=== PATIENT | male | born 1935 | race Caucasian/White ===

== ENCOUNTER 2019-09-09 13:09 | Emergency (ER) | payer OTHER ==
[~2019-09-09] VITALS: Ht 175.3 cm; Wt 63.5 kg
--- NOTE | 2019-09-09 13:18 | NUR ---
"[facility] TO ER; [facility] WHERE HE HAD A MECHANICAL TRIP & FALL; FELL FACE DOWN; C/O LEFT FACIAL WOUND AND NOSE BLEED;DENIES KO" pt [id number], -sob, nad noted, pt on monitor, vss, pending md mims
[2019-09-09 13:48] LABS: BASOPHILS # (AUTO) 0.1 /CMM (0.0-0.2); BASOPHILS % (AUTO) 2.5 % (0.0-2.0); EOSINOPHILS % (AUTO) 0.2 % (0.0-6.0); HEMATOCRIT 28 % (39-51); HEMOGLOBIN 7.5 g/dL (13.5-17.5); LYMPHOCYTES # (AUTO) 3.8 /CMM (0.8-4.8); MEAN CORPUSCULAR HGB CONC 27 g/dl (31.0-36.0); MEAN CORPUSCULAR VOLUME 67 fL (80-96); MONOCYTES % (AUTO) 0.5 % (2.0-12.0); NEUTROPHILS # (AUTO) 1.9 /CMM (1.8-8.9); NEUTROPHILS % (AUTO) 31.8 % (43.0-81.0); RED BLOOD CELL COUNT(AUTO) 4.18 MIL/uL (4.5-6.0); WHITE BLOOD COUNT (AUTO) 5.8 K/uL (4.3-11.0)
[2019-09-09 13:49] LABS: CALCIUM, SERUM 8.1 mg/dL (8.5-10.1); CREATININE 0.8 mg/dL (0.6-1.3); POTASSIUM 4.1 mmol/L (3.5-5.1)
[2019-09-09 13:56] LABS: ALBUMIN 3.8 g/dL (3.4-5.0); BILIRUBIN,DIRECT 0.4 mg/dL (0.0-0.2); BILIRUBIN,TOTAL 1.8 mg/dL (0.2-1.0); TOTAL PROTEIN, SERUM 6.3 g/dL (6.4-8.2)
[2019-09-09] MEDS ORDERED: PHENYLEPHRINE 0.5% NASAL SPRAY 15 ML BOTTLE NS ONE ×2 (14:10→14:30)
[2019-09-09] MEDS ORDERED: ATEN50TA PO ×2 (14:19)
[2019-09-09] MEDS ORDERED: FINA5TAB3 PO (14:19)
[2019-09-09] MEDS ORDERED: TAMS-12 PO (14:20)
[2019-09-09] MEDS ORDERED: ONDANSETRON HCL/PF 4 MG/2 ML VIAL ONE (14:21)
[2019-09-09] MEDS ORDERED: ONDANSETRON HCL/PF 4 MG/2 ML VIAL IVP ONE (14:30)
[2019-09-09] MEDS ORDERED: IV NS 0.9% 1,000 ML BAG IV ONE (14:30)
--- NOTE | 2019-09-09 14:52 | NUR ---
PT TAKEN TO CT
--- NOTE | 2019-09-09 14:55 | NUR ---
CALLED [facility] FOR TELE BED
--- NOTE | 2019-09-09 14:56 | NUR ---
MED SURGE BED 322-1
--- NOTE | 2019-09-09 15:04 | NUR ---
CALLED [facility] TO INITIATE TRANSFER
[2019-09-09 15:07] LABS: LIPASE 145 U/L (73-393)
--- NOTE | 2019-09-09 15:13 | NUR ---
PT BACK FROM [place]
[2019-09-09 15:16] LABS: PLATELET COUNT (AUTO) 47 /CMM (150-450)
[2019-09-09 15:28] LABS: LYMPHOCYTES % (MANUAL) 25 % (16-48); MONOCYTES % (MANUAL) 1 % (0-11.0); NEUTROPHILS % (MANUAL) 71 (42-76); REACTIVE LYMPHOCYTES 3 % (0-0)
--- NOTE | 2019-09-09 16:21 | NUR ---
[facility] ACCEPTING. Jose CURTIS ADMITTING DR. KELLEY 9678 PRN. CALL REPORT TO [phone] MARY SEARS
[2019-09-09 17:36] VITALS: BP 112/71
--- NOTE | 2019-09-09 17:37 | NUR ---
CALLED [facility], STATED THEY'LL CALL BACK TO RECEIVE INFO
--- NOTE | 2019-09-09 18:01 | NUR ---
PER LUZ. MARY CASTELLANOS WILL CALL
--- NOTE | 2019-09-09 18:26 | NUR ---
REPORT GIVEN TO MARY ROME ()
== END 2019-09-09 18:29 ==
LOC: ER 13:10
DX: S02.32XA Fracture of orbital floor, left side, initial encounter for closed fracture (principal); S02.2XXA Fracture of nasal bones, initial encounter for closed fracture; S05.12XA Contusion of eyeball and orbital tissues, left eye, initial encounter; R04.0 Epistaxis; D69.6 Thrombocytopenia, unspecified; D64.9 Anemia, unspecified; E86.0 Dehydration; I10 Essential (primary) hypertension; I48.91 Unspecified atrial fibrillation; Z88.8 Allergy status to other drugs, medicaments and biological substances; Z79.899 Other long term (current) drug therapy; W18.39XA Other fall on same level, initial encounter; Y93.89 Activity, other specified; Y92.89 Other specified places as the place of occurrence of the external cause; Y99.8 Other external cause status
CPT/HCPCS: 30901; 36415; 70450; 70486; 71045; 72125; 80048; 80076; 83690; 84484; 85025; 85730; 86850; 93005; 96361; 96374; 99285; J2405; J7030